=== PATIENT | female | born 1970 | race Caucasian/White ===

== ENCOUNTER → 2021-05-06 15:23 | Outpatient (CLI) | payer OTHER, SELFPAY ==
[2021-05-06 15:48] LABS: COVID19 -Nasal RAPID Negative (Negative)
== END ==
PROVIDERS: Referring Provider Nurse Practitioner; Visit Provider Nurse Practitioner
DX: Z20.822 Contact with and (suspected) exposure to COVID-19 (principal); R50.9 Fever, unspecified; R52 Pain, unspecified
CPT/HCPCS: 87635

== ENCOUNTER → 2021-08-23 11:08 | Outpatient (CLI) | payer OTHER, SELFPAY ==
--- NOTE | 2021-08-23 | DI.MRI.S_ITS ---
PROCEDURE: MR LUMBAR SPINE WO CON INDICATIONS: Low back pain, unspecified TECHNIQUE: Noncontrast sagittal T1 spin echo and T2 fast echo, sagittal STIR, axial T1 and T2 fast spin echo through the lumbar spine. In cases with scoliosis, additional coronal T2 fast spin echo may be performed. COMPARISON: [facility] [place], CR, XR LUMBAR SPINE WITH OLBIQUES PLUS FLEXION EXTENSION, 07/28/2021, 10:07. FINDINGS: Image quality: Excellent. Alignment and Curvature: 5 lumbar type vertebral bodies are present by plain film. There is loss of normal lumbar lordosis. Minimal grade 1 retrolisthesis of L2 on L3. Bone Marrow: Marrow is of normal overall signal. No acute vertebral body compression fractures. Interbody device placement at L2-L3 and L3-L4. Mild reactive signal throughout the endplates of the lumbar spine. Spinal Cord: Conus medullaris terminates at the mid L1 level. Visualized cord demonstrates normal signal and size. Paraspinous Soft Tissues: No paravertebral masses. T12-L1: Normal appearance. L1-L2: Mild disc desiccation and diffuse disc bulge. Mild bilateral facet and ligamentum flavum hypertrophy. Mild epidural lipomatosis. Mild canal stenosis. No foraminal stenosis. L2-L3: Interbody device placement. Mild disc desiccation and diffuse disc bulge with small superimposed broad-based left posterolateral protrusion. Mild facet and ligamentum flavum hypertrophy. Mild epidural lipomatosis. Mild canal stenosis. Mild left greater than right foraminal stenosis. L3-L4: Interbody device placement. Mild disc desiccation and diffuse disc bulge. Mild facet and ligamentum flavum hypertrophy. Mild canal stenosis. Mild bilateral foraminal stenosis. L4-L5: Mild disc height loss and desiccation. Mild diffuse disc bulge with small superimposed broad-based right posterolateral protrusion. Mild facet and ligamentum flavum hypertrophy. Mild canal stenosis. Moderate right greater than left foraminal stenosis. L5-S1: Mild disc height loss and desiccation. Mild diffuse disc bulge with superimposed left paracentral and posterolateral disc extrusion. Mild bilateral facet and ligamentum flavum hypertrophy. Mild canal stenosis. Mild bilateral foraminal stenosis. Compression and posterior deviation of the left S1 nerve root within the lateral recess. IMPRESSION: 1. Multilevel degenerative disc and facet disease, as well as ligamentum flavum hypertrophy and epidural lipomatosis. 2. Mild multilevel canal stenoses. 3. Multilevel foraminal stenoses, worst at L4-L5, where there are moderate foraminal stenoses. 4. L5-S1 disc extrusion, compressing and posteriorly deviating the left S1 nerve root within the lateral recess. Recommend correlation with clinical symptoms to ascertain relevance of this finding. Dictated by: Matthew Gandara M.D. on 08/23/2021 at 12:20 Approved by: Matthew Gandara M.D. on 08/23/2021 at 12:24
== END ==
PROVIDERS: Referring Provider Physical Medicine & Rehabilitation Pain Medicine; Visit Provider Physical Medicine & Rehabilitation Pain Medicine
DX: M51.36 Other intervertebral disc degeneration, lumbar region (principal); M51.27 Other intervertebral disc displacement, lumbosacral region; M48.061 Spinal stenosis, lumbar region without neurogenic claudication; M48.07 Spinal stenosis, lumbosacral region
CPT/HCPCS: 72148

== ENCOUNTER → 2021-09-27 14:20 | Outpatient (CLI) | payer OTHER, SELFPAY ==
[2021-09-27 15:34] LABS: Add Manual Diff / Slide Review NO; Basophils Absolute Auto 100 /uL (0-100); Basophils Percent Auto 0.9 % (0-2); Eosinophils Absolute Auto 100 /uL (0-450); Eosinophils Percent Auto 1.6 % (2-4); Hematocrit 38.1 % (36-46); Hemoglobin 12.9 g/dL (12.0-16.0); Lymphocytes Absolute Auto 2300 /uL (1100-4500); Lymphocytes Percent Auto 35.3 % (25-40); Mean Corpuscular HGB Conc 33.8 % (30-36); Mean Corpuscular Hemoglobin 31.9 PG (26-34); Mean Corpuscular Volume 94.3 fL (80-100); Monocytes Absolute Auto 400 /uL (0-900); Monocytes Percent Auto 6.8 % (3-14); Neutrophils Absolute Auto 3500 /uL (1500-7000); Neutrophils Percent Auto 55.4 % (50-75); Platelet Count 265 X10^3/uL (150-400); Red Blood Cell Count 4.04 X10^6/uL (4.0-5.2); Red Cell Distribution Width 12.3 % (11.6-14.8); White Blood Cell Count 6.4 X10^3/uL (4.5-11.0)
[2021-09-27 17:02] LABS: BUN Creatinine Ratio 20.5 (6-22); Blood Urea Nitrogen 18 mg/dL (7-17); Calcium 10.4 mg/dL (8.4-10.2); Carbon Dioxide 29 mmol/L (22-32); Chloride 106 mmol/L (98-107); Estimated Glomerular Filt Rate > 60.0 mL/min (>60); Glucose 86 mg/dL (70-100); HEMOLYSIS < 15 (0-50); Potassium 4.2 mmol/L (3.4-5.1); Sodium 137 mmol/L (137-145)
[2021-09-27 18:00] LABS: COVID-19 CEPHEID PCR (VTM/NP) Negative (Negative)
== END ==
PROVIDERS: Nurse Practitioner Family; Referring Provider Orthopaedic Surgery Orthopaedic Surgery of the Spine; Visit Provider Orthopaedic Surgery Orthopaedic Surgery of the Spine
DX: Z01.812 Encounter for preprocedural laboratory examination (principal); Z20.822 Contact with and (suspected) exposure to COVID-19
CPT/HCPCS: 36415; 80048; 85025; U0003

== ENCOUNTER → 2021-09-30 11:50 | Outpatient (CLI) | payer OTHER, SELFPAY ==
[2021-09-30 13:18] LABS: COVID19 -Nasal RAPID Negative (Negative)
== END ==
PROVIDERS: Referring Provider Nurse Practitioner Family; Visit Provider Nurse Practitioner Family
DX: Z01.812 Encounter for preprocedural laboratory examination (principal); Z20.822 Contact with and (suspected) exposure to COVID-19
CPT/HCPCS: 87635

== ENCOUNTER 2021-10-01 06:14 | Day surgery (SDC) | payer OTHER, SELFPAY ==
[2021-09-27 15:02] VITALS: BMI 29.2
--- NOTE | 2021-09-28 19:00 | SUR.PREOP ---
Pt called and notified that surgery has been cancelled. Notified to reach out to doctor's office to reschedule.
[2021-10-01] VITALS (10 sets, daily range): BP systolic 112–136; BP diastolic 70–87; PULSE 70–87; RESP 12–20; TEMP 36.1–36.5; O2SAT 96–99; BMI 29.0
[2021-10-01] MEDS: LACTATED RINGERS 1,000 ML 42 ML IV (07:11)
--- NOTE | 2021-10-01 07:29 | SUR.OPER ---
Prone on spine table, head in foam head support, padded chest and pelvic supports, gel pad at knees, lower legs supported by pillows; nipples, genitalia and toes free of pressure, arms secured on foam padded arm boards at <90 degrees abduction. Tape over blanket at thigh secured to table.
[2021-10-01] MEDS: CEFAZOLIN 2 GM/20 ML SYRINGE IV ×2 (08:10→08:19)
[2021-10-01] MEDS: BUPIVACAINE 0.25% (PF) 30 ML, EPINEPHrine 0.15 MG INJ (08:22)
[2021-10-01] MEDS: methylPREDNISolone acet DEPO 40 MG/ML VIAL INJ (08:23)
--- NOTE | 2021-10-01 08:55 | DI.RAD.S_ITS ---
PROCEDURE: XR LUMBAR SPINE 2-3V INDICATIONS: L5-S1 MICRODISCECTOMY TECHNIQUE: 2 views of the lumbar spine were acquired. COMPARISON: None. FINDINGS: Bones: Localizer device at the left L5 lamina. Soft tissues: Overlying bowel gas pattern is normal. No suspicious soft tissue calcifications. IMPRESSION: Intraoperative localizer device at the left L5 lamina. Dictated by: Keyona Alvarez MD, PhD on 10/01/2021 at 15:11 Approved by: Keyona Alvarez MD, PhD on 10/01/2021 at 15:12
--- NOTE | 2021-10-01 09:06 | PM.OP.1 ---
Operative Date/Time/Diagnoses Date of procedure: 10/01/21 Time of procedure: 07:45 Pre-op diagnosis: 1. L5-S1 disc herniation 2. L5-S1 radiculopathy Post-op diagnosis: same Procedure & Clinicians Procedure: 1. L5-S1 left microdiscectomy 2. Utilization of microsurgical technique and operating microscope Same procedure as scheduled: Yes Indications: Patient has been having chronic back pain and worsening lumbar radiculopathy. Patient failed multiple conservative management with worsening pain weakness and numbness in her lower extremity. Patient has been having difficulty performing activity of daily living. After discussing risks benefits of treatment options, patient elected proceed with surgery. Surgeon: Marely Gaston Turning Machine Operator Helper: Feli Nowak Click Yes if Unassisted: No Anesthesia Type: General Operative Notes Closure Type: primary Specimen(s): none sent Estimated Blood Loss (mL): 5 Blood products transfused: none Procedure in detail: Patient was seen in the preoperative area. Risks and benefits of the surgery was discussed with the patient. Informed consent was obtained from the patient and placed in the chart. Surgical site was marked. Patient was taken to the operative room. General anesthesia was administered. Prophylactic antibiotic was given to the patient less than 30 min before the incision was made. Patient was placed into a prone position on the Anthony table. Patient's back was then prepped and draped in the sterile fashion. Time-out was performed at this time. Using AP and lateral C-arm imaging the interval between L5-S1 was identified and marked on patient's back. A 1 inch incision 1 in from midline was made on the left side. The fascia was incised in line with skin incision. Globus MARS retractors was placed inside the incision and docked onto the L5 lamina. Using microsurgical technique and operating microscope, a L5 laminotomy was performed using a Kerrison rongeur. Liagamentum flavum was resected at the site of the laminotomy. The disc space at L5-S1 was identified. Microdiscectomy was performed by incising the annulus with #11 blade. Microcurettes and pituitary was used to removed herniated disc fragments of disc from the epidural space. After the microdiskectomy was completed, the area medial lateral superior and inferior to the area of the microdiskectomy was inspected and explored using a micro curette. No other impinging structure was identified. The wound was then irrigated with sterile normal saline. 40 mg Depo-Medrol was placed into the epidural space. The deep fascia was closed with 1-0 Vicryl. The subcutaneous tissue was closed with 2-0 Vicryl. The skin was closed with 4-0 Monocryl. Patient tolerated the procedure well. There were no complications. Patient was transferred recovery room in stable condition. Complications: none Post-operative Condition: stable Disposition: PACU Plan for aftercare: Discharge to home
--- NOTE | 2021-10-01 09:14 | SUR.PHASEI ---
Received to PACU after general anesthesia. Airway patent, self maintained. Report from TALIB Pina and Dr Hubbard.
[2021-10-01] MEDS: fentaNYL 100 MCG/2 ML INJ IV ×2 (09:21→09:30)
[2021-10-01] MEDS: OXYCODONE/ACETAMINOPHEN 5/325 TABLET 1 TAB PO ×2 (09:34→09:45)
[2021-10-01] MEDS: HYDROMORPHONE 2 MG INJ IV ×4 (09:44→10:00)
--- NOTE | 2021-10-28 11:31 | PM.HP.1 ---
History of Present Illness History of Present Illness Date Patient Seen: 10/01/21 Time Patient Seen: 08:45 Date of Onset of Symptoms: 05/20/21 Chief complaint: SDC Narrative: Ms. Daugherty is a 51 yo F with acute onset left leg pain, weakness and numbness. Her MRI shows large L5-S1 disc herniation. After discussing risks and benefits of surgery, informed consent was obtained and patient was scheduled for L5-S1 left microdiscectomy. Patient History Medical History DVT (deep venous thrombosis) Overactive thyroid gland Spinal stenosis Surgical History History of hysterectomy History of lumbar fusion (02/2020) History of total left knee replacement (2017) History of total right knee replacement (2017) S/P epidural steroid injection Family & Social History Social History: household members spouse Tobacco & Substance use: Tobacco type cigarettes Smoking Status Former smoker alcohol intake current alcohol intake frequency holiday/special occasion Substance Use Type does not use Meds Home Medications and Allergies Home Medications Medication Instructions Recorded Confirmed Type bupropion HCl 300 mg 24 hr tablet, 300 mg PO DAILY 09/27/21 10/01/21 History extended release (Wellbutrin XL) methylphenidate HCl 5 mg tablet 5 mg PO TID 09/27/21 10/01/21 History (Ritalin) omeprazole 40 mg capsule,delayed 40 mg PO DAILY 09/27/21 10/01/21 History release oxybutynin chloride 5 mg tablet 5 mg PO DAILY 09/27/21 10/01/21 History oxycodone 5 mg tablet 5 mg PO PRN PRN 09/27/21 10/01/21 History pregabalin 25 mg capsule (Lyrica) 100 mg PO BID 09/27/21 10/01/21 History tizanidine 4 mg tablet 4 mg PO DAILY 09/27/21 10/01/21 History oxycodone 5 mg tablet 5 mg PO Q4-6H PRN #30 tab MDD 6 10/01/21 Rx tabs Allergies Allergy/AdvReac Type Severity Reaction Status Date / Time hydrocodone [From Vicodin] AdvReac Severe ITCHING Verified 10/01/21 06:58 Review of Systems Review of Systems ROS: Yes All systems reviewed with the patient and are negative except as otherwise documented Exam Vital Signs (past 8 hours): Oxygen Delivery Method Room Air Back/Spine/Pelvis Other: pain in lower back with range of motion with radiating pain down left hip and leg. Neuro Other: Left leg with + straight leg raise, sensibility is decreased to left S1 dermatome, motor strength is 4/5 in left gastroc. Assessment & Plan Assessment & Plan narrative: Ms. Daugherty is a 51 yo F with 4 months hx of severe left leg radiculopathy due to a large L5-S1 disc herniation. Patient failed over 3 months of conservative treatment with persisting pain and progressive leg weakness. Risks for surgery was discussed, which includes but not limited to bleeding, infection, nerve/dura injury, persisting pain, recurrent disc herniation, need for additional procedure. Pt understands and would like to proceed with surgery. Patient is scheduled for L5-S1 left microdiscectomy. Time Spent With Patient Critical Care time: I spent a total of [] minutes of critical care time on this patient's care today; this time is exclusive of procedural time.
== END 2021-10-01 10:42 | disposition home or self-care (01) ==
PROVIDERS: Referring Provider Orthopaedic Surgery Orthopaedic Surgery of the Spine; Visit Provider Orthopaedic Surgery Orthopaedic Surgery of the Spine
PROC: (CPT 63030; principal; 2021-10-01 07:45)
DX: M51.26 Other intervertebral disc displacement, lumbar region (principal); M54.16 Radiculopathy, lumbar region
CPT/HCPCS: 63030; 72100; 76000; 82962; J0171; J0690; J1030; J1100; J1170; J2405; J2704; J3010

== ENCOUNTER → 2021-12-14 14:01 | Outpatient (CLI) | payer OTHER, SELFPAY ==
--- NOTE | 2021-12-14 14:07 | DI.MRI.S_ITS ---
PROCEDURE: MR LUMBAR SPINE WO CON INDICATIONS: Spinal stenosis lumbar region TECHNIQUE: Noncontrast sagittal T1 spin echo and T2 fast echo, sagittal STIR, and T2 fast spin echo through the lumbar spine. In cases with scoliosis, additional coronal T2 fast spin echo may be performed. COMPARISON: [facility] [place], CR, XR LUMBAR SPINE 2 OR 3 VIEWS, 11/16/2021, 11:26. [facility], CR, XR LUMBAR SPINE 2-3V, 10/01/2021, 9:17. [facility], MR, MR LUMBAR SPINE WO CON, 08/23/2021, 11:20. [facility] [place], CR, XR LUMBAR SPINE WITH OLBIQUES PLUS FLEXION EXTENSION, 07/28/2021, 10:07. [facility], CR, XR LUMBAR SPINE 2 OR 3 VIEWS, 05/21/2021, 22:20. FINDINGS: Image quality: Excellent. Alignment and Curvature: There is normal bony alignment. Bones: Status post left L5-S1 laminotomy. L2-L3 and L3-L4 intervertebral cage grafts are stable compared to August 23, 2021. Minimal Modic type 2 reactive endplate changes noted adjacent to the L2-L3, L3-L4 and L5-S1 discs. No acute vertebral body compression fractures. Spinal Cord: Conus medullaris terminates at the L1 level. Visualized cord demonstrates normal signal and size. Paraspinous Soft Tissues: No paravertebral masses. T12-L1: Normal appearance. L1-L2: Normal appearance. L2-L3: Status post interbody device placement. Loss of disc signal. Mild, diffuse disc bulge. Mild bilateral facet hypertrophy. Mild narrowing of the central canal. Mild bilateral neural foraminal narrowing. L3-L4: Status post interbody device placement. Loss of disc signal. Mild bilateral facet hypertrophy. Mild narrowing of the central canal. Mild bilateral neural foraminal narrowing. No neural compression L4-L5: Loss of disc signal and slight loss of disc height. Mild to moderate diffuse disc bulge. Mild bilateral facet hypertrophy. Mild to moderate narrowing of the central canal. Moderate bilateral neural foraminal narrowing. No neural compression. L5-S1: Status post left laminotomy for microdiscectomy. Loss of disc signal and mild loss of disc height. Mild, diffuse disc bulge. Small recurrent left central disc extrusion. Extruded disc material abuts and slightly displaces the traversing left S1 nerve root. Mild bilateral facet hypertrophy. Mild narrowing of the central canal. Mild bilateral neural foraminal narrowing. IMPRESSION: 1. Status post left L5-S1 laminotomy for microdiscectomy. There is small recurrent left central L5-S1 disc extrusion. Extruded disc material abuts and slightly displaces the traversing left S1 nerve root. 2. Otherwise, stable examination compared to August 23, 2021. Dictated by: Keyona Alvarez MD, PhD on 12/14/2021 at 15:06 Approved by: Keyona Alvarez MD, PhD on 12/14/2021 at 15:13
== END ==
PROVIDERS: Referring Provider Orthopaedic Surgery Orthopaedic Surgery of the Spine; Visit Provider Orthopaedic Surgery Orthopaedic Surgery of the Spine
DX: M48.061 Spinal stenosis, lumbar region without neurogenic claudication (principal); M51.27 Other intervertebral disc displacement, lumbosacral region; Z98.1 Arthrodesis status
CPT/HCPCS: 72148

== ENCOUNTER → 2022-03-24 18:17 | Outpatient (CLI) | payer OTHER, SELFPAY ==
--- NOTE | 2022-03-24 | DI.MRI.S_ITS ---
PROCEDURE: MR LUMBAR SPINE WO CON INDICATIONS: spinal stenosis, lumbar region TECHNIQUE: Noncontrast sagittal T1 spin echo and T2 fast echo, sagittal STIR, and T2 fast spin echo through the lumbar spine. In cases with scoliosis, additional coronal T2 fast spin echo may be performed. COMPARISON: [facility], MR, MR LUMBAR SPINE WO CON, 12/14/2021, 14:11. [facility] [place], CR, XR LUMBAR SPINE 2 OR 3 VIEWS, 11/16/2021, 11:26. [facility], CR, XR LUMBAR SPINE 2-3V, 10/01/2021, 9:17. [facility], MR, MR LUMBAR SPINE WO CON, 08/23/2021, 11:20. [facility] [place], CR, XR LUMBAR SPINE WITH OLBIQUES PLUS FLEXION EXTENSION, 07/28/2021, 10:07. [facility], CR, XR LUMBAR SPINE 2 OR 3 VIEWS, 05/21/2021, 22:20. FINDINGS: Image quality: Excellent. Alignment and Curvature: There is normal bony alignment. Bones: Postsurgical changes compatible with left L5-S1 laminotomy as well as L2-L3 and L3-L4 intervertebral cage graft placement are stable compared to December 14, 2021 and August 23, 2021. Modic type 2 reactive endplate changes adjacent to the L2-L3, L3-L4 and L5-S1 discs are stable compared to prior exams.. No acute vertebral body compression fractures. Spinal Cord: Conus medullaris terminates at the L1 level. Visualized cord demonstrates normal signal and size. Paraspinous Soft Tissues: No paravertebral masses. T12-L1: Normal appearance. L1-L2: Normal appearance. L2-L3: Stable postsurgical changes. Loss of disc signal. Mild, diffuse disc bulge. Mild bilateral facet hypertrophy. Mild narrowing of the central canal. Mild bilateral neural foraminal narrowing. No neural compression. L3-L4: Stable postsurgical changes. Loss of disc signal. Mild bilateral facet hypertrophy. Mild narrowing of the central canal. Mild bilateral neural foraminal narrowing. No neural compression. L4-L5: Loss of disc signal and slight loss of disc height. Mild to moderate diffuse disc bulge. Mild bilateral facet hypertrophy. Mild to moderate narrowing of the central canal. Moderate bilateral neural foraminal narrowing. No neural compression. Fissure noted in the posterior annulus. L5-S1: Loss of disc signal. Mild, diffuse disc bulge. Small recurrent left central disc extrusion has decreased in size compared to December 14, 2021 compatible with desiccation. No central stenosis. Mild bilateral neural foraminal narrowing. No neural compression. IMPRESSION: 1. Stable postsurgical changes. 2. Multilevel degenerative disc disease. 3. Multilevel facet arthropathy. 4. No severe central canal narrowing. 5. No severe neural foraminal narrowing. 6. No neural compression. 7. L5-S1 recurrent L5-S1 disc extrusion is decreased in size compared to prior exam compatible with interval desiccation. 8. L4-L5 disc annulus fissure. Dictated by: Keyona Alvarez MD, PhD on 03/25/2022 at 10:56 Approved by: Keyona Alvarez MD, PhD on 03/25/2022 at 11:10
== END ==
PROVIDERS: Referring Provider Orthopaedic Surgery Orthopaedic Surgery of the Spine; Visit Provider Orthopaedic Surgery Orthopaedic Surgery of the Spine
DX: M48.062 Spinal stenosis, lumbar region with neurogenic claudication (principal); M51.36 Other intervertebral disc degeneration, lumbar region; M51.37 Other intervertebral disc degeneration, lumbosacral region; M51.27 Other intervertebral disc displacement, lumbosacral region; M47.816 Spondylosis without myelopathy or radiculopathy, lumbar region
CPT/HCPCS: 72148